=== PATIENT | female | born 1935 | race Caucasian/White ===

== ENCOUNTER 2021-11-13 15:48 | Observation (INO) | payer MEDICARE ==
[2021-11-13] MEDS ORDERED: SODIUM CHLORIDE 0.9% 1,000 ML IV ONE ×2 (16:36)
--- NOTE | 2021-11-13 16:52 | ED ---
Altered Mental Status HPI - General Chief Complaint: Altered Mental Status Stated Complaint: covid+ Time Seen by Provider: 11/13/21 16:25 Source: patient, EMS, RN notes reviewed Mode of arrival: EMS Limitations: altered mental status - History of Present Illness Initial Comments: 78-year-old female who presents by EMS with complaints of confusion and memory issues. Started about 3 days ago she felt like she was lost like she had a blank line. States she didn't really know who she was. Patient apparently was diagnosed with Coban about a week ago and did receive antibody infusion. No reports of fevers chills nausea vomiting sweats no trauma no other complaints or modifying factors reported at this time patient herself is a poor historian otherwise MD Complaint: altered mental status, confusion - Related Data Home Medications Medication Instructions Recorded Confirmed Benzonatate [Tessalon Perles] 100 mg PO BID PRN 11/13/21 11/13/21 Dorzolamide-Timol 2.23%/0.68% 1 drop BOTH EYES BID 11/13/21 11/13/21 [Cosopt] Latanoprost Ophth [Xalatan 0.005%] 1 drop BOTH EYES HS 11/13/21 11/13/21 dexAMETHasone 6 tab PO DAILY 11/13/21 11/13/21 Allergies Allergy/AdvReac Type Severity Reaction Status Date / Time No Known Allergies Allergy Verified 11/13/21 17:34 Review of Systems ROS Statement: Those systems with pertinent positive or pertinent negative responses have been documented in the HPI. ROS Other: All systems not noted in ROS Statement are negative. Past Medical History Past Medical History: Unable to Obtain History of Any Multi-Drug Resistant Organisms: Unobtainable Past Surgical History: Unable to Obtain Past Psychological History: Unable to Obtain Smoking Status: Never smoker Past Alcohol Use History: None Reported Past Drug Use History: None Reported General Exam - General Exam Comments Initial Comments: This is a well-developed well-nourished awake alert Limitations: altered mental status General appearance: alert, in no apparent distress Head exam: Present: atraumatic, normocephalic, normal inspection Eye exam: Present: normal appearance, PERRL, EOMI. Absent: scleral icterus, conjunctival injection, periorbital swelling ENT exam: Present: mucous membranes dry Neck exam: Present: normal inspection, full ROM, other (Genitourinary or b ruits). Absent: tenderness, meningismus, lymphadenopathy Respiratory exam: Present: normal lung sounds bilaterally. Absent: respiratory distress, wheezes, rales, rhonchi, stridor Cardiovascular Exam: Present: regular rate, normal rhythm, normal heart sounds. Absent: systolic murmur, diastolic murmur, rubs, gallop, clicks GI/Abdominal exam: Present: soft, normal bowel sounds. Absent: distended, tenderness, guarding, rebound, rigid Extremities exam: Present: normal inspection, full ROM, normal capillary refill. Absent: tenderness, pedal edema, joint swelling, calf tenderness Back exam: Present: normal inspection Neurological exam: Present: alert, oriented X3, CN II-XII intact Psychiatric exam: Present: normal affect, normal mood Skin exam: Present: warm, dry, intact, normal color. Absent: rash Course Vital Signs 11/13/21 11/13/21 11/13/21 15:52 17:00 18:00 Temperature 98.6 F Pulse Rate 73 66 64 Respiratory 16 18 18 Rate Blood Pressure 139/85 153/84 160/85 O2 Sat by Pulse 96 96 Oximetry Medical Decision Making - Medical Decision Making I did discuss findings with the on-call physician . Patient will be admitted - Lab Data Result diagrams: 11/13/21 17:06 11/13/21 17:06 Lab Results 11/13/21 11/13/21 11/13/21 Range/Units 17:06 17:06 17:06 WBC 5.7 (3.8-10.6) k/uL RBC 4.51 (3.80-5.40) m/uL Hgb 13.7 (11.4-16.0) gm/dL Hct 41.0 (34.0-46.0) % MCV 91.0 (80.0-100.0) fL MCH 30.3 (25.0-35.0) pg MCHC 33.3 (31.0-37.0) g/dL RDW 12.3 (11.5-15.5) % Plt Count 326 (150-450) k/uL MPV 9.0 Neutrophils % 87 % Lymphocytes % 9 % Monocytes % 1 % Eosinophils % 1 % Basophils % 1 % Neutrophils # 5.0 (1.3-7.7) k/uL Lymphocytes # 0.5 L (1.0-4.8) k/uL Monocytes # 0.1 (0-1.0) k/uL Eosinophils # 0.1 (0-0.7) k/uL Basophils # 0.0 (0-0.2) k/uL PT 11.1 (9.0-12.0) sec INR 1.0 (<1.2) APTT 22.7 (22.0-30.0) sec Sodium 136 L (137-145) mmol/L Potassium 4.0 (3.5-5.1) mmol/L Chloride 103 (98-107) mmol/L Carbon Dioxide 24 (22-30) mmol/L Anion Gap 9 mmol/L BUN 13 (7-17) mg/dL Creatinine 0.68 (0.52-1.04) mg/dL Est GFR (CKD-EPI)AfAm >90 (>60 ml/min/1.73 sqM) Est GFR (CKD-EPI)NonAf 78 (>60 ml/min/1.73 sqM) Glucose 132 H (74-99) mg/dL Calcium 8.8 (8.4-10.2) mg/dL Magnesium 2.1 (1.6-2.3) mg/dL Total Bilirubin 1.1 (0.2-1.3) mg/dL AST 34 (14-36) U/L ALT 27 (4-34) U/L Alkaline Phosphatase 88 (38-126) U/L Ammonia (<30) umol/L Troponin I (0.000-0.034) ng/mL Total Protein 6.3 (6.3-8.2) g/dL Albumin 3.3 L (3.5-5.0) g/dL Lipase 136 (23-300) U/L Coronavirus (PCR) (Not Detectd) 11/13/21 11/13/21 11/13/21 Range/Units 17:06 17:06 18:47 WBC (3.8-10.6) k/uL RBC (3.80-5.40) m/uL Hgb (11.4-16.0) gm/dL Hct (34.0-46.0) % MCV (80.0-100.0) fL MCH (25.0-35.0) pg MCHC (31.0-37.0) g/dL RDW (11.5-15.5) % Plt Count (150-450) k/uL MPV Neutrophils % % Lymphocytes % % Monocytes % % Eosinophils % % Basophils % % Neutrophils # (1.3-7.7) k/uL Lymphocytes # (1.0-4.8) k/uL Monocytes # (0-1.0) k/uL Eosinophils # (0-0.7) k/uL Basophils # (0-0.2) k/uL PT (9.0-12.0) sec INR (<1.2) APTT (22.0-30.0) sec Sodium (137-145) mmol/L Potassium (3.5-5.1) mmol/L Chloride (98-107) mmol/L Carbon Dioxide (22-30) mmol/L Anion Gap mmol/L BUN (7-17) mg/dL Creatinine (0.52-1.04) mg/dL Est GFR (CKD-EPI)AfAm (>60 ml/min/1.73 sqM) Est GFR (CKD-EPI)NonAf (>60 ml/min/1.73 sqM) Glucose (74-99) mg/dL Calcium (8.4-10.2) mg/dL Magnesium (1.6-2.3) mg/dL Total Bilirubin (0.2-1.3) mg/dL AST (14-36) U/L ALT (4-34) U/L Alkaline Phosphatase (38-126) U/L Ammonia <9 (<30) umol/L Troponin I <0.012 (0.000-0.034) ng/mL Total Protein (6.3-8.2) g/dL Albumin (3.5-5.0) g/dL Lipase (23-300) U/L Coronavirus (PCR) Detected A (Not Detectd) - EKG Data -: EKG Interpreted by Me EKG Comments: Sinus rhythm a 64 MD interval 150 QRS 80 QT since QTC 480/[address]-T wave configuration - Radiology Data Radiology results: report reviewed (Imaging reviewed bilateral infiltrates noted. 16 negative for acute findings), image reviewed Disposition Clinical Impression: Pneumonia due to COVID-19 virus, Encephalopathy, Dehydration Disposition: ADMITTED IP TO THIS [facility] Condition: Fair Referrals: None,Stated [Primary Care Provider] - 1-2 days
[2021-11-13 17:16] LABS: Basophils % (A) 1 %; Eosinophils # (A) 0.1 k/uL (0-0.7); Eosinophils % (A) 1 %; HGB 13.7 gm/dL (11.4-16.0); Lymphocytes # (A) 0.5 k/uL (1.0-4.8); Lymphocytes % (A) 9 %; MCH 30.3 pg (25.0-35.0); MCHC 33.3 g/dL (31.0-37.0); Monocytes # (A) 0.1 k/uL (0-1.0); Monocytes % (A) 1 %; Neutrophils % (A) 87 %; Platelet Count 326 k/uL (150-450); RBC 4.51 m/uL (3.80-5.40); RDW 12.3 % (11.5-15.5); WBC 5.7 k/uL (3.8-10.6)
[2021-11-13 17:25] LABS: ALT 27 U/L (4-34); AST 34 U/L (14-36); African American GFR (CKD) >90 (>60 ml/min/1.73 sqM); Albumin 3.3 g/dL (3.5-5.0); Alkaline Phosphatase 88 U/L (38-126); Anion Gap 9 mmol/L; Blood Urea Nitrogen 13 mg/dL (7-17); Calcium 8.8 mg/dL (8.4-10.2); Carbon Dioxide 24 mmol/L (22-30); Chloride 103 mmol/L (98-107); Glucose 132 mg/dL (74-99); Lipase 136 U/L (23-300); Magnesium 2.1 mg/dL (1.6-2.3); Non-African American GFR(CKD) 78 (>60 ml/min/1.73 sqM); Sodium 136 mmol/L (137-145); Total Bilirubin 1.1 mg/dL (0.2-1.3); Total Protein 6.3 g/dL (6.3-8.2)
[2021-11-13 17:35] LABS: Partial Thromboplastin Time 22.7 sec (22.0-30.0); Prothrombin Time 11.1 sec (9.0-12.0)
--- NOTE | 2021-11-13 17:46 | XR ---
EXAMINATION: XR chest 2V DATE AND TIME: 11/13/2021 5:17 PM CLINICAL INDICATION: altered mental status TECHNIQUE: Departmental protocol COMPARISON: None FINDINGS: The lungs demonstrate lateral marked ill-defined added opacities which predominate in the periphery o f the lung parenchyma. These opacities involve the lower lung zones in the midlung zones, and upper l dylon zones. There is also silhouetting of the pulmonary vasculature bilaterally by a fine reticular pattern. This radiographic pattern could represent concurrent interstitial phase pulmonary edema if clinically sup ported. The pleural spaces are unremarkable. The cardiac silhouette is moderately enlarged. The skeletal structures and soft tissues are negative for acute findings. IMPRESSION: Prominent bilateral pulmonary abnormalities, compatible with the clinically suspected atypical pneumo epifanio. Additional findings as above.
--- NOTE | 2021-11-13 17:50 | CT ---
EXAMINATION: CT brain wo con DATE AND TIME: 11/13/2021 5:26 PM CLINICAL INDICATION: Altered mental status TECHNIQUE: Standard departmental protocol.; 1082.4 mGy-cm COMPARISON: None available. FINDINGS: The calvarium is intact. There is no intracranial hemorrhage. There is no intracranial mass or mass effect. There are prominent bilateral gonzalez radiata and centrum semiovale low-attenuation regions, nonspecif ic but usually reflecting small vessel ischemic change. There are no definite new intra-axial attenua tion defects, but this impression is limited without availability of prior CT or MRI studies. The extra-axial compartment is unremarkable. The paranasal sinuses are positive for fluid and mucosal thickening in the sphenoid, maxillary, and e thmoid sinuses to a mild degree. Frontal sinuses are clear. The middle ear cavities and mastoid sinus air cells are clear. The orbits are unremarkable. IMPRESSION: No definite acute CT process.
[2021-11-13] MEDS ORDERED: NALOXONE 0.4 MG/ML 1 ML VIAL IV PRN (21:14)
[2021-11-13] MEDS ORDERED: ACETAMINOPHEN TAB 325 MG TAB PO PRN (21:14)
[2021-11-13 21:59] LABS: Appearance,Urine Clear (Clear); Bilirubin,Urine Negative (Negative); Blood,Urine Negative (Negative); Color,Urine Yellow; Glucose,Urine (UA) Negative (Negative); Ketones,Urine 2+ (Negative); Leukocyte Esterase,Urine Negative (Negative); Nitrite,Urine Negative (Negative); PH, Urine 5.5 (5.0-8.0); Protein,Urine Negative (Negative); Specific Gravity,Urine 1.017 (1.001-1.035)
[2021-11-13 22:28] LABS: Amphetamine Screen,Urine Not Detected (NotDetected); Barbiturate Screen,Urine Not Detected (NotDetected); Benzodiazepines Screen,Urine Not Detected (NotDetected); Cocaine Screen,Urine Not Detected (NotDetected); Methadone Screen, Urine Not Detected (NotDetected); Opiate Screen,Urine Not Detected (NotDetected); Oxycodone Screen, Urine Not Detected (NotDetected); Phencyclidine Screen,Urine Not Detected (NotDetected); Tricyclic Antidepressant,Urine Not Detected (NotDetected); Urn Cannabinoid Scrn Not Detected (NotDetected)
[2021-11-14] MEDS ORDERED: MELATONIN 5 MG TABLET PO PRN (01:09)
--- NOTE | 2021-11-14 01:10 | P.HPIM ---
History of Present Illness H&P Date: 11/13/21 The patient is an 86-year-old female who was brought into the emergency room due to multiple complaints. History was limited as the patient was confused during the interview, thereby supplemented from the ED physician and the chart. The patient reported that she does not have any friends or family and no one who providers can reach out to for further history. The patient states that she was diagnosed with COVID 19 roughly one week ago and was given medications that she has already completed and also received an antibiotic infusion. She reports no chronic conditions and states that she routinely does not take any medications at home. She states living at home and that she is able to complete all her ADLs independently. She reports being unvaccinated. States that over the past 3-4 days, she had felt more fatigued and had occasional shortness of breath along with feeling confused and states that her "mind feels blank". At the time of interview, she reported feeling somewhat the same since her presentation. She denied any additional active complaints. She denied chest discomfort, nausea, vomiting, abdominal pain, diarrhea, fever, chills. Brain CT was unremarkable with chest x-ray consistent with COVID pneumonia with EKG showing normal sinus rhythm at 64 bpm with diffuse T-wave flattening. Laboratory evaluation was remarkable for coronavirus PCR positive. The patient had an SpO2 of 96% on room air and did not require oxygen in the emergency room. Review of systems: Pertinent positives and negatives as discussed in HPI, a complete review of systems was performed and all other systems are negative. Physical examination: General: non toxic, no distress, appears at stated age, normal weight Derm: no unusual rashes/lesions no unusual ecchymoses, warm, dry Head: atraumatic, normocephalic, symmetric Eyes: EOMI, no lid lag, anicteric sclera, pupils equal round reactive to light ENT: Nose and ears atraumatic, no thrush, no pharyngeal erythema Neck: No thyromegaly, no cervical lymphadenopathy, trachea midline, supple Mouth: no lip lesion, mucus membranes moist Cardiovascular: S1S2 reg, no murmur, positive posterior tibial pulse bilateral, no edema, capillary refill less than 2 seconds Lungs: Scattered rhonchi and rales, no accessory muscle use Abdominal: soft, nontender to palpation, no guarding, no appreciable organomegaly, normal bowel sounds Ext: no gross muscle atrophy, muscle strength 5 out of 5 in all 4 extremities grossly, no contractures, Neuro: CN II-XI grossly intact, light touch intact all 4 extremities, finger to nose within normal limits, Psych: Alert, oriented only to person and partially to place, not oriented to time Assessment/plan COVID-19 pneumonia -Zinc, vitamin C, vitamin D, melatonin Altered mental status -Suspected secondary to ongoing infection and possibly due to poor oral intake -Neurology consulted -Gentle IV hydration DVT prophylaxis -Lovenox The patient is admitted with an anticipated less than 2 midnight stay for evaluation of COVID, AMS CODE STATUS: Full Code Discussed with: Patient Anticipated discharge date: in am Anticipated discharge place: Home Past Medical History Past Medical History: Unable to Obtain History of Any Multi-Drug Resistant Organisms: Unobtainable Past Surgical History: Unable to Obtain Past Psychological History: Unable to Obtain Smoking Status: Never smoker Past Alcohol Use History: None Reported Past Drug Use History: None Reported Medications and Allergies Home Medications Medication Instructions Recorded Confirmed Type Benzonatate [Tessalon Perles] 100 mg PO BID PRN 11/13/21 11/13/21 History Dorzolamide-Timol 2.23%/0.68% 1 drop BOTH EYES BID 11/13/21 11/13/21 History [Cosopt] Latanoprost Ophth [Xalatan 0.005%] 1 drop BOTH EYES HS 11/13/21 11/13/21 History dexAMETHasone 6 tab PO DAILY 11/13/21 11/13/21 History Allergies Allergy/AdvReac Type Severity Reaction Status Date / Time No Known Allergies Allergy Verified 11/13/21 17:34 Physical Exam Vitals: Vital Signs Temp Pulse Resp BP Pulse Ox 11/13/21 22:50 63 18 167/85 95 11/13/21 18:00 64 18 160/85 96 11/13/21 17:00 66 18 153/84 11/13/21 15:52 98.6 F 73 16 139/85 96 Intake and Output 11/13/21 11/13/21 11/14/21 14:59 22:59 06:59 Other: Weight 63.503 kg Results CBC & Chem 7: 11/13/21 17:06 11/13/21 17:06 Labs: Abnormal Lab Results - Last 24 Hours (Table) 11/13/21 11/13/21 11/13/21 Range/Units 17:06 17:06 17:06 Lymphocytes # 0.5 L (1.0-4.8) k/uL Sodium 136 L (137-145) mmol/L Glucose 132 H (74-99) mg/dL Albumin 3.3 L (3.5-5.0) g/dL Urine Ketones 2+ H (Negative) Coronavirus (PCR) (Not Detectd) 11/13/21 Range/Units 18:47 Lymphocytes # (1.0-4.8) k/uL Sodium (137-145) mmol/L Glucose (74-99) mg/dL Albumin (3.5-5.0) g/dL Urine Ketones (Negative) Coronavirus (PCR) Detected A (Not Detectd)
[2021-11-14] MEDS: SODIUM CHLORIDE 0.9% 1,000 ML IV SCH ×2 (04:29→12:14)
[2021-11-14] MEDS ORDERED: hydrALAZINE HCL 25 MG TAB PO STA (04:44)
[2021-11-14] MEDS ORDERED: ZINC SULFATE 220 MG CAP PO SCH (09:00)
[2021-11-14] MEDS ORDERED: CHOLECALCIFEROL 25 MCG (1000 IU) TABLET PO SCH (09:00)
[2021-11-14] MEDS ORDERED: ENOXAPARIN 40 MG/0.4 ML SYRINGE SQ SCH (09:00)
[2021-11-14] MEDS ORDERED: ASCORBIC ACID 500 MG TAB PO SCH (09:00)
[2021-11-14] MEDS ORDERED: DORZOLAMIDE-TIMOLOL 2.23%/0.68 10ML BTL BOTH EYES SCH (09:00)
--- NOTE | 2021-11-14 13:09 | P.DS ---
Providers Date of admission: 11/13/21 21:37 Expected date of discharge: 11/14/21 Attending physician: Joceline Lockhart MD Consults: 11/13/21 21:15 Consult Physician Routine Consulting Provider: Juanjo Ryan Consult Reason/Comments: Encephalopathy Do you want consulting provider notified?: Yes, Notify in am Primary care physician: Stated None Hospital Course: Discharge Diagnosis: COVID-19 pneumonia Memory issues like due to old age Hospital Course: Patient is an 86-year-old female who came to the ED with multiple complaints. Patient states that she feels sick and is foggy in her head. She was admitted for neurology evaluation. Patient's labs were unremarkable. Her UA was negative for UTI. CT head was negative for acute process. She was found to have COVID-19 however was satting well on room air. When I went to see the patient she was AAO [address] ([address]) and she was answering all questions appropriately. Patient was also joking with me. I believe patient's confusion is due to her old age. I told the patient to follow-up with her PCP for further evaluation. Patient is satting well on room air so does not need treatment in the hospital for COVID-19. Patient is stable for discharge and can follow up with her PCP. inside sales manager did arrange for home care. Patient stated that she lives alone and has relatives that check up on her. General examination - Alert and Oriented 8 in NAD Heart - + S1S2 no murmurs Lungs - Clear to auscultation Abdomen soft NT ND +ve BS Extremities - No edema DIGITAL WATCH [employer]SEM[employer]ER - Moving all 4 extremities spontaneously Psych - Calm and cooperative A total of [33] minutes of time were spent preparing this complex discharge summary . Patient Condition at Discharge: Fair Plan - Discharge Summary New Discharge Prescriptions: Continue Benzonatate [Tessalon Perles] 100 mg PO BID PRN PRN Reason: Cough dexAMETHasone 6 tab PO DAILY Latanoprost Ophth [Xalatan 0.005%] 1 drop BOTH EYES HS Dorzolamide-Timol 2.23%/0.68% [Cosopt] 1 drop BOTH EYES BID Discharge Medication List Benzonatate [Tessalon Perles] 100 mg PO BID PRN 11/13/21 [History] Dorzolamide-Timol 2.23%/0.68% [Cosopt] 1 drop BOTH EYES BID 11/13/21 [History] Latanoprost Ophth [Xalatan 0.005%] 1 drop BOTH EYES HS 11/13/21 [History] dexAMETHasone 6 tab PO DAILY 11/13/21 [History] Follow up Appointment(s)/Referral(s): None,Stated [Primary Care Provider] - 1-2 days Discharge Disposition: HOME WITH HOME HEALTH SERVICES
[2021-11-14 14:32] VITALS: BP 116/74; PULSE 85; RESP 17; TEMP 98.4
--- NOTE | 2021-11-14 16:56 | P.CNNES ---
History of Present Illness Consult date: 11/14/21 Requesting physician: Michael Rosa Reason for Consult: Encephalopathy History of Present Illness: Patient is a 86-year-old female came to the hospital by ambulance yesterday at 3:48 PM. EMS flow sheet not available in the chart. Patient says that she came to the hospital because of Covid-19 infection that was positive few days ago. Patient states that she lives alone, has no children, and states that "someone has to fill the hospital beds ", therefore she came to the hospital. Patient at present denies any headache, no dizziness, no visual problems. No strokelike symptoms. Patient is hard of hearing. She did not want to be examined, or provide any history. Patient would keep on seeing "leave me alone". "Go, see someone else". As per electronic records, patient was diagnosed with Covid-19 about a week ago and she did receive antibody infusion. Patient's altered mental status started about 3 days ago and she felt like she was lost like she had a blank line. She didn't really know who she was. This was reported to the ED physician. Blood test shows normal CBC, PT/PTT, sodium 136 potassium 4.0, normal renal functions. Normal hepatic panel, ammonia less than 9, troponin negative. UA negative. Urine drug screen negative. Todd virus PCR positive. CT head showed no acute process. I reviewed computed tomography scan of the head, and appears mild generalized atrophy, some small vessel disease. Significant paranasal sinus disease involving the ethmoid, maxillary and sphenoid sinuses, which is particularly worse involving the right sphenoid and left maxillary sinuses. Mastoid air cells and frontal sinuses appears clear. Chest x-ray showed prominent bilateral pulmonary abnormalities, compatible with a clinically suspected atypical pneumonia. EKG shows normal sinus rhythm, nonspecific ST and T-wave abnormality. Home medications include dexamethasone 12 mg daily. Review of Systems As above. She did not provide any other review of systems due to her noncooperation. ROS unobtainable: due to mental status Past Medical History Past Medical History: Unable to Obtain Additional Past Medical History / Comment(s): Pt denies any medical history. History of Any Multi-Drug Resistant Organisms: Unobtainable Past Surgical History: Unable to Obtain Past Anesthesia/Blood Transfusion Reactions: No Reported Reaction Past Psychological History: Unable to Obtain Smoking Status: Never smoker Past Alcohol Use History: None Reported Past Drug Use History: None Reported Medications and Allergies Home Medications Medication Instructions Recorded Confirmed Type Benzonatate [Tessalon Perles] 100 mg PO BID PRN 11/13/21 11/13/21 History Dorzolamide-Timol 2.23%/0.68% 1 drop BOTH EYES BID 11/13/21 11/13/21 History [Cosopt] Latanoprost Ophth [Xalatan 0.005%] 1 drop BOTH EYES HS 11/13/21 11/13/21 History dexAMETHasone 6 tab PO DAILY 11/13/21 11/13/21 History Allergies Allergy/AdvReac Type Severity Reaction Status Date / Time No Known Allergies Allergy Verified 11/13/21 17:34 Physical Examination - Vital Signs Vital Signs: Vital Signs Temp Pulse Pulse Resp BP BP Pulse Ox 11/14/21 07:30 97.8 F 80 16 133/72 98 11/14/21 04:42 190/90 11/14/21 01:54 18 11/14/21 00:13 18 11/13/21 22:50 63 18 167/85 95 11/13/21 18:00 64 18 160/85 96 11/13/21 17:00 66 18 153/84 11/13/21 15:52 98.6 F 73 16 139/85 96 Intake and Output 11/13/21 11/14/21 11/14/21 22:59 06:59 14:59 Intake Total 118 Balance 118 Intake: Oral 118 Other: Voiding Method Toilet # Voids 3 Weight 63.503 kg 63.503 kg Patient is an elderly female, in no acute distress. Patient is coughing, appears slightly congested. Patient is alert awake. Patient thinks it's the year 1998, could not tell the month, states "I lost the month". She knows that she lives in [facility] but does not know the name of the building, or the city she is in. She states she does not know name of the current president. When asked a few questions, patient stated "why do do bother someone else". Speech and language functions are normal. Attention, concentration and fund of knowledge is limited. On cranial examination, pupils are round and reacting to light, visual francis are full on confrontation, with no neglect on double simultaneous stimulation. Her extraocular muscles are intact with no nystagmus. Face is symmetric, tongue protrudes to the midline. Palatal elevation and sensation normal, hearing is moderately decreased and shoulder shrug normal, facial sensation normal. Shoulder shrug normal. On muscle strength testing, there is no pronator drift and the strength is normal in arms and legs distally and proximally. Deep tendon reflexes are 1 all over and plantars are withdrawal Sensory to touch is equal with no neglect. Cerebellar function showed no ataxia for [id number] testing. Tone and bulk of muscles normal. Gait not checked. On general examination, there is no carotid bruit or murmur, S1-S2 audible. Abdomen is soft nontender. No organomegaly. Bowel sounds present. Chest is has some congestion noted. Peripheral pulses are present. No edema. Results - Laboratory Findings CBC and BMP: 11/13/21 17:06 11/13/21 17:06 Abnormal Lab Findings: Abnormal Labs 11/13/21 11/13/21 11/13/21 17:06 17:06 17:06 Lymphocytes # 0.5 L Sodium 136 L Glucose 132 H Albumin 3.3 L Urine Ketones 2+ H Coronavirus (PCR) 11/13/21 18:47 Lymphocytes # Sodium Glucose Albumin Urine Ketones Coronavirus (PCR) Detected A Assessment and Plan Assessment: * Altered mental status, probably mild delirium due to #2. * Acute Covid-19 infection * Patient's examination is nonfocal. Plan: * Patient is neurologically stable. She did not cooperate with the examination as mentioned above. * No other neurological workup indicated. * Treatment of Todd virus as per IM. * Patient is neurologically clear.
[2021-11-14] MEDS ORDERED: LATANOPROST 0.005% OPHTH DROPS 2.5 ML BTL BOTH EYES SCH (21:00)
== END 2021-11-14 16:32 | disposition home health service (06) ==
LOC: EC 15:48 → 6NMEDSUR 21:37
PROVIDERS: ADMIT Internal Medicine; ATTEND Internal Medicine
DX: U07.1 COVID-19 (principal); J12.82 Pneumonia due to coronavirus disease 2019; G93.40 Encephalopathy, unspecified; E86.0 Dehydration; R41.82 Altered mental status, unspecified; H91.90 Unspecified hearing loss, unspecified ear; R41.81 Age-related cognitive decline; R53.83 Other fatigue; Z71.89 Other specified counseling; Z79.52 Long term (current) use of systemic steroids; Z79.811 Long term (current) use of aromatase inhibitors; Z79.899 Other long term (current) drug therapy
CPT/HCPCS: 99285; 96360; 96361; 96372; 36415; 93005; 97162; 80053; 82140; 83690; 83735; 84484; 85025; 85610; 85730; 81003; 80306; 87635; 71046; 70450; G0378 ×2; J1650